=== PATIENT | female | born 1960 | race Caucasian/White ===

== ENCOUNTER 2020-08-10 17:22 | Inpatient (IN) | payer OTHER ==
[~2020-08-10] VITALS: Ht 157.5 cm; Wt 75.7 kg
[2020-08-10] MEDS ORDERED: SODIUM CHLORIDE FLUSH 10ML SYR IVF ONE (18:30)
--- NOTE | 2020-08-10 18:56 | NUR ---
BEDSIDE REPORT RECEIVED FROM MERCEDEZ HALL
--- NOTE | 2020-08-10 18:56 | NUR ---
REPORT TO MIRELA
--- NOTE | 2020-08-10 19:00 | NUR ---
PT SITTING UPRIGHT ON GUSANDEEP, SHERRI, VSS. DAUGHTER AT BEDSIDE. PT DENIES ANY NEEDS AT THIS TIME. CALL LIGHT AND PERSONAL BELONGINGS WITHIN REACH.
[2020-08-10 19:12] LABS: MICROSCOPIC NOT IND
[2020-08-10 19:20] LABS: ALBUMIN 4.4 g/dL (3.4-5.0); ANION GAP 8 mmol/L (5-15); CALCIUM 9.4 mg/dL (8.5-10.1); CHLORIDE 110 mmol/L (98-107)
[2020-08-10 19:21] LABS: BASOPHILS % (AUTO) 0 % (0-1); EOSINOPHILS % (AUTO) 1 % (1-7); LYMPHOCYTES % (AUTO) 12 % (22-44); MEAN PLATELET VOLUME 7.2 fL (7.4-10.4); MONOCYTES % (AUTO) 4 % (2-9); NEUTROPHILS % (AUTO) 83 % (42-75); PLATELET COUNT 265 x10^3/uL (130-400); RED BLOOD COUNT 3.11 x10^6/uL (3.82-5.3); RED CELL DISTRIBUTION WIDTH 15.4 % (9.6-15.2)
[2020-08-10 19:23] LABS: MD NO
[2020-08-10 19:24] LABS: ALANINE AMINOTRANSFERASE 37 U/L (12-78); ALKALINE PHOSPHATASE 134 U/L (45-117); BILIRUBIN,TOTAL 0.6 mg/dL (0.2-1.0); CREATININE 1.47 mg/dL (0.55-1.02); TOTAL PROTEIN 8.2 g/dL (6.4-8.2)
[2020-08-10] MEDS ORDERED: ONDANSETRON 2MG/ML, 2ML ONE (19:36)
[2020-08-10] MEDS ORDERED: HYDROmorphone 1 MG/ML, 1ML INJ ONE ×2 (19:36→20:34)
--- NOTE | 2020-08-10 19:54 | NUR ---
PT RETURNED FROM CT
[2020-08-10] MEDS: HYDROmorphone 2 MG/ML, 1ML IVPush PRN ×2 (19:55→20:47)
[2020-08-10] MEDS ORDERED: OMNIPAQUE 350 MG/ML, 100ML BOTTLE ONE (20:00)
[2020-08-10] MEDS ORDERED: ONDANSETRON 2MG/ML, 2ML IVPush ONE (20:00)
--- NOTE | 2020-08-10 20:03 | NUR ---
PT SITTING UPRIGHT ON GUSANDEEP, SHERRI, VSS. DAUGHTER AT BEDSIDE. PT DENIES ANY NEEDS AT THIS TIME. CALL LIGHT AND PERSONAL BELONGINGS WITHIN REACH.
--- NOTE | 2020-08-10 21:03 | NUR ---
ERP AT BEDSIDE
--- NOTE | 2020-08-10 21:05 | NUR ---
PT SITTING UPRIGHT ON GURNEY, PT REQUESTED ADDITIONAL DOSE OF PAIN MEDICATION, MEDICATED PER EMAR. PT DENIES ANY ADDITIONAL NEEDS AT THIS TIME. DAUGHTER AT BEDSIDE.
[2020-08-10] MEDS ORDERED: SODIUM CHLORIDE FLUSH 10ML SYR IVF PRN (21:30)
[2020-08-10] MEDS ORDERED: PROC10TA78 PO (21:37)
[2020-08-10] MEDS ORDERED: LORA2TAB99 PO (21:37)
[2020-08-10] MEDS ORDERED: OLAP100T PO (21:37)
[2020-08-10] MEDS ORDERED: PEMB100V IV (21:37)
[2020-08-10] MEDS ORDERED: ONDA4TAB7 PO (21:37)
[2020-08-10] MEDS ORDERED: LOPE2CAP PO (21:37)
--- NOTE | 2020-08-10 21:47 | NUR ---
Pt to be admitted to ONC, room 444. Report called to PASQUALE.
--- NOTE | 2020-08-10 21:56 | NUR ---
HOSPITALIST AT BEDSIDE
[2020-08-10 22:10] VITALS: BP 147/66
[2020-08-10 22:15] VITALS: BP 147/66
[2020-08-11 00:23] VITALS: BP 152/84
[2020-08-11] MEDS ORDERED: HYDROmorphone 2 MG/ML, 1ML IVPush PRN (00:30)
[2020-08-11] MEDS: LORazepam 1MG TABLET PO SCH ×2 (01:24→20:28)
[2020-08-11] MEDS ORDERED: MELATONIN 5 MG TABLET PO PRN (01:30)
[2020-08-11] MEDS ORDERED: LABETALOL 5MG/ML, 20ML IVPush PRN (01:30)
[2020-08-11] MEDS: SODIUM CHLORIDE 0.9% 1,000 ML IV SCH ×2 (01:30→09:30)
[2020-08-11] MEDS ORDERED: DOCUSATE 100 MG CAPSULE PO PRN (01:30)
[2020-08-11] MEDS ORDERED: LIDODERM 5% PATCH TD PRN (01:30)
[2020-08-11] MEDS ORDERED: ACETAMINOPHEN 325 MG TABLET PO PRN (01:30)
[2020-08-11] MEDS: HEPARIN 5,000 UNITS/ML, 1ML SQ SCH ×4 (01:46→20:29)
[2020-08-11] MEDS: HYDROmorphone 2 MG/ML, 1ML IVPush PRN ×3 (04:27→12:05)
[2020-08-11 05:21] LABS: BASOPHILS % (AUTO) 0 % (0-1); EOSINOPHILS % (AUTO) 2 % (1-7); LYMPHOCYTES % (AUTO) 14 % (22-44); MEAN CORPUSCULAR HEMOGLOBIN 35.7 pg (27.0-34.8); MEAN CORPUSCULAR HGB CONC 36.1 g/dL (32.4-35.8); MONOCYTES % (AUTO) 6 % (2-9); NEUTROPHILS % (AUTO) 78 % (42-75); PLATELET COUNT 234 x10^3/uL (130-400); RED BLOOD COUNT 3.03 x10^6/uL (3.82-5.3); RED CELL DISTRIBUTION WIDTH 15.7 % (9.6-15.2)
[2020-08-11 05:30] LABS: ANION GAP 8 mmol/L (5-15); CALCIUM 9.1 mg/dL (8.5-10.1); CHLORIDE 111 mmol/L (98-107); CREATININE 1.27 mg/dL (0.55-1.02)
[2020-08-11 05:44] LABS: MD NO
[2020-08-11 06:43] VITALS: BP 136/66
[2020-08-11] MEDS: ONDANSETRON 2MG/ML, 2ML IVPush PRN ×3 (07:42→20:29)
[2020-08-11] MEDS: OLAPARIB HOMEMEDPO SCH ×2 (09:00→21:00)
[2020-08-11] MEDS: [UNRECOGNIZED DRUG - OTHER] HOMEMEDPO SCH ×2 (09:00→21:00)
[2020-08-11] MEDS: POLYETHYLENE GLYCOL 17 GM PACKET NG SCH ×4 (12:04→18:36)
[2020-08-11 12:50] VITALS: BP 133/77
[2020-08-11] MEDS ORDERED: DIPHENHYDRAMINE 50 MG/ML, 1ML IVPush PRN (13:00)
[2020-08-11] MEDS: NS + 20MEQ KCL 1,000 ML IV SCH ×2 (14:13→22:14)
[2020-08-11 18:52] VITALS: BP 160/73
[2020-08-12 03:34] VITALS: BP 146/70
[2020-08-12] MEDS: HEPARIN 5,000 UNITS/ML, 1ML SQ SCH (04:30)
[2020-08-12] MEDS: NS + 20MEQ KCL 1,000 ML IV SCH (06:10)
[2020-08-12 07:11] VITALS: BP 130/81
[2020-08-12] MEDS: OLAPARIB HOMEMEDPO SCH (09:22)
[2020-08-12] MEDS: [UNRECOGNIZED DRUG - OTHER] HOMEMEDPO SCH (09:22)
[2020-08-12] MEDS: ONDANSETRON 2MG/ML, 2ML IVPush PRN (09:38)
[2020-08-12 09:41] LABS: ALANINE AMINOTRANSFERASE 25 U/L (12-78); ALBUMIN 3.5 g/dL (3.4-5.0); ANION GAP 5 mmol/L (5-15); CALCIUM 8.8 mg/dL (8.5-10.1); CHLORIDE 115 mmol/L (98-107)
[2020-08-12 09:44] LABS: ALKALINE PHOSPHATASE 108 U/L (45-117); BILIRUBIN,TOTAL 0.5 mg/dL (0.2-1.0); TOTAL PROTEIN 6.8 g/dL (6.4-8.2)
[2020-08-12] MEDS ORDERED: POLY17PO5 PO (10:24)
== END 2020-08-12 11:37 | disposition home or self-care (01) | DRG 394 ==
LOC: ED 18:31 → EDIP 21:13 → 4NW 22:08 → DCLOUNGE 08-12 11:26
PROVIDERS: ADMIT Internal Medicine; ATTEND Internal Medicine
DX: K43.3 Parastomal hernia with obstruction, without gangrene (principal); C56.9 Malignant neoplasm of unspecified ovary; K56.52 Intestinal adhesions [bands] with complete obstruction; F41.1 Generalized anxiety disorder; F41.9 Anxiety disorder, unspecified; Z86.73 Personal history of transient ischemic attack (TIA), and cerebral infarction without residual deficits; Z90.49 Acquired absence of other specified parts of digestive tract; Z90.710 Acquired absence of both cervix and uterus; Z93.3 Colostomy status; Z88.0 Allergy status to penicillin
CPT/HCPCS: 36415; 74177; 80048; 80053; 81003; 83690; 83735; 85025; 96374; 96375; 96376; G0378; J1170; J1644; J2405; J3480; Q9967; J7030